=== PATIENT | female | born 1990 | race Caucasian/White ===

== ENCOUNTER 2017-12-15 09:20 | Emergency (ER) | payer SELFPAY ==
[2017-12-15 10:05] VITALS: BP 101/70
--- NOTE | 2017-12-15 10:20 | UC ---
Eye Complaint HPI - HPI Summary HPI Summary: Pt c/o left upper eye lid swelling and tenderness X 4 days. Pt has been applying warm packs with limited improvement. - History of Current Complaint Chief Complaint: UCEye Stated Complaint: LEFT EYE COMPLAINT Time Seen by Provider: 12/15/17 10:15 Hx Obtained From: Patient Hx Last Menstrual Period: 12/15/17 ?: No Onset/Duration: Gradual Onset, Lasting Days, Still Present, Worse Since - onset Timing: Constant Severity Initially: Mild Severity Currently: Mild Pain Intensity: 0 Location of Injury: Eye Lid (upper) - left Aggravating Factor(s): Nothing Associated Signs And Symptoms: Positive: Negative Related History: Other - stye - Risk Factors Penetrating Injury Risk Factor: Negative Globe Rupture Risk Factors: Negative - Allergies/Home Medications Allergies/Adverse Reactions: Allergies Allergy/AdvReac Type Severity Reaction Status Date / Time No Known Allergies Allergy Verified 12/15/17 10:00 PMH/Surg Hx/FS Hx/Imm Hx Previously Healthy: Yes - Surgical History Surgical History: Yes Surgery Procedure, Year, and Place: gallbladder - Family History Known Family History: Positive: Cardiac Disease - Social History Occupation: Employed Full-time Lives: With Family Alcohol Use: None Substance Use Type: None Smoking Status (MU): Heavy Every Day Tobacco Smoker Type: Cigarettes Amount Used/How Often: 1/2 PPD Have You Smoked in the Last Year: Yes - Immunization History Most Recent Influenza Vaccination: 03/2014 Review of Systems Constitutional: Negative Skin: Negative Eyes: Other - upper eye lid swelling ENT: Negative Respiratory: Negative Cardiovascular: Negative Gastrointestinal: Negative Genitourinary: Negative Motor: Negative Neurovascular: Negative Musculoskeletal: Negative Neurological: Negative Psychological: Negative Is Patient Immunocompromised?: No All Other Systems Reviewed And Are Negative: Yes Physical Exam Triage Information Reviewed: Yes Appearance: Well-Appearing Vital Signs: Initial Vital Signs Temp 98.3 F 12/15/17 10:00 Pulse 70 12/15/17 10:00 Resp 16 12/15/17 10:00 BP 101/70 12/15/17 10:00 Pulse Ox 100 12/15/17 10:00 Vital Signs Reviewed: Yes Eye Exam: Other - left upper eye lid swelling, mild erythema ENT Exam: Normal Dental Exam: Normal Neck exam: Normal Respiratory: Positive: No respiratory distress Musculoskeletal Exam: Normal Neurological Exam: Normal Psychological Exam: Normal Skin Exam: Normal Eye Complaint Course/Dx - Differential Dx/Diagnosis Differential Diagnosis/HQI/PQRI: Periorbital Cellulitis Provider Diagnoses: goran left upper eye lid Discharge - Sign-Out/Discharge Documenting (check all that apply): Discharge/Admit/Transfer - Discharge Plan Condition: Stable Disposition: HOME Prescriptions: Cephalexin CAP* [Keflex 500 CAP*] 500 mg PO Q12H #14 cap Patient Education Materials: Goran (ED) Referrals: More Hampton MD [Primary Care Provider] - If Needed - Billing Disposition and Condition Condition: STABLE Disposition: Home
== END 2017-12-15 10:26 | disposition home or self-care (01) ==
LOC: UCCORT 09:20
DX: H00.024 Hordeolum internum left upper eyelid (principal); F17.210 Nicotine dependence, cigarettes, uncomplicated
CPT/HCPCS: 99202; G0463

== ENCOUNTER 2018-05-01 11:56 | Emergency (ER) | payer SELFPAY ==
[2018-05-01 12:12] VITALS: BP 125/68
--- NOTE | 2018-05-01 12:47 | UC ---
Respiratory Complaint HPI - HPI Summary HPI Summary: 27 year old female presents with complaints of nasal congestion, post-nasal drip , and non-productive cough. States she had similar symptoms about 2 months ago which she self-treated with OTC cold medicines. State nasal congestion improved but the cough never completely subsided. About 1 week ago she started developing the nasal congestion and post-nasal drip again and had worsening of cough. Associated with some mild SOB especially first thing in the morning. Denies fever, chills, sinus pressure, ear pain, sore throat, chest pain, abdominal pain, nausea, or vomiting. - History of Current Complaint Chief Complaint: UCRespiratory Stated Complaint: CONGESTION,COUGH Time Seen by Provider: 05/01/18 12:33 Hx Obtained From: Patient Hx Last Menstrual Period: 04/22/18 Onset/Duration: Gradual Onset, Lasting Weeks Pain Intensity: 0 Character: Cough: Nonproductive Aggravating Factors: Recumbent Position Alleviating Factors: Nothing Associated Signs And Symptoms: Positive: Dyspnea, Nasal Congestion. Negative: Fever, Chills, Pleuritic Chest Pain, Wheezing, Hemoptysis, Sinus Discomfort - Allergies/Home Medications Allergies/Adverse Reactions: Allergies Allergy/AdvReac Type Severity Reaction Status Date / Time No Known Allergies Allergy Verified 05/01/18 12:10 PMH/Surg Hx/FS Hx/Imm Hx Previously Healthy: Yes - Denies significant PMH - Surgical History Surgical History: Yes Surgery Procedure, Year, and Place: gallbladder - Family History Known Family History: Positive: Cardiac Disease - Social History Occupation: Employed Part-time Lives: With Family Alcohol Use: None Substance Use Type: None Smoking Status (MU): Heavy Every Day Tobacco Smoker Type: Cigarettes Amount Used/How Often: 1/2 PPD Have You Smoked in the Last Year: Yes - Immunization History Most Recent Influenza Vaccination: 03/2014 Review of Systems All Other Systems Reviewed And Are Negative: Yes Constitutional: Positive: Negative Skin: Positive: Negative Eyes: Positive: Negative ENT: Positive: Nasal Discharge, Sinus Congestion Respiratory: Positive: Shortness Of Breath, Cough Cardiovascular: Positive: Negative Gastrointestinal: Positive: Negative Is Patient Immunocompromised?: No Physical Exam Triage Information Reviewed: Yes Appearance: Well-Appearing, No Pain Distress, Well-Nourished Vital Signs: Initial Vital Signs Temp 98 F 05/01/18 12:08 Pulse 74 11/11/18 12:08 Resp 15 05/01/18 12:08 BP 125/68 05/01/18 12:08 Pulse Ox 100 05/01/18 12:08 Eyes: Positive: Conjunctiva Clear. Negative: Discharge ENT: Positive: Hearing grossly normal, Pharyngeal erythema - Mild with postnasal drip, Nasal congestion, TMs normal, Uvula midline. Negative: Nasal drainage, Tonsillar swelling, Tonsillar exudate, Sinus tenderness Neck: Positive: Supple, Nontender, No Lymphadenopathy Respiratory: Positive: Lungs clear, Normal breath sounds, No respiratory distress, Other: - dry, nonproductive cough Cardiovascular: Positive: RRR, No Murmur Abdomen Description: Positive: Nontender, No Organomegaly, Soft. Negative: Distended, Guarding Neurological: Positive: Alert Skin Exam: Normal UC Diagnostic Evaluation - Laboratory O2 Sat by Pulse Oximetry: 100 Respiratory Course/Dx - Course Course Of Treatment: 27 year old female with URI symptoms and cough. States initially started 2 months ago. Nasal congestion improved with self-treatment using OTC cold medications however cough never subsided. For past week she has started having the nasal congestion and worsening of cough. Afebrile. Exam reveals nasal congestion, mild pharyngeal erythema with post-nasal drip and dry non-productive cough. She is a smoker and suspect that she may have some mild RAD contributing to the cough. Will treat her with a course of azithromycin, albuterol PRN, fluticasone nasal spray, saline rinses, and Tessalon Perles PRN. She is to follow up with PCP in 1 week if no improvement in symptoms. Warning symptoms reveiewed. Verbalizes understanding and agrees with POC. - Differential Dx/Diagnosis Differential Diagnosis/HQI/PQRI: Asthma, Bronchitis, Lower Resp Infection, Sinusitis Provider Diagnoses: URI Discharge - Sign-Out/Discharge Documenting (check all that apply): Patient Departure All imaging exams completed and their final reports reviewed: No Studies - Discharge Plan Condition: Stable Disposition: HOME Prescriptions: Albuterol HFA INHALER* [Ventolin HFA Inhaler*] 2 puff INH Q4H PRN #1 mdi PRN Reason: Sob/Wheezing Azithromyxin [place] (NF) [Z-[place] (Zithromax) 250 mg tabs #6] 2 tab PO .TODAY, THEN 1 DAILY #6 tab Benzonatate CAP* [Tessalon 100 MG CAP*] 100 mg PO TID PRN #30 cap PRN Reason: Cough Fluticasone NASAL SPRAY 50MCG* [Flonase NASAL SPRAY 50MCG*] 2 spray BOTH NARES DAILY #1 btl Patient Education Materials: How to Stop Smoking (ED), Upper Respiratory Infection (ED) Referrals: No Primary Care Phys,NOPCP [Primary Care Provider] - Additional Instructions: Your symptoms appear to be from an upper respiratory infection. Considering the duration of symptoms and your smoking history I will treat you with an antibiotic. Start azithromycin 2 tabs today then 1 tab a day for next 4 days. Use a saline rinse kit such as Neti Pot or NeilMed at least twice a day to help thin secretions and promote drainage. Start fluticasone (Flonase) nasal spray 2 sprays each nostril once a day. Try using an over the counter decongestant such as Sudafed to help with the nasal congestion. Use the albuterol inhaler 2 puffs every 4-6 hours as needed for shortness of breath, wheezing, or coughing fits. May use Tessalon Perles 1 cap every 8 hours as needed for cough. Follow up with your primary care provider in 7 days if no improvement in symptoms. Seek immediate medical attention in the emergency room if you develop fever greater than 100.5 F, have chest pain, increased shortness of breath, or any worsening of symptoms. - Billing Disposition and Condition Condition: STABLE Disposition: Home - Attestation Statements Provider Attestation: Per institutional requirements, I have reviewed the chart, however, I was not consulted specifically or made aware of this patient by the midlevel provider. I did not personally evaluate, interact with , or disposition this patient.
== END 2018-05-01 12:55 | disposition home or self-care (01) ==
LOC: UCCORT 11:56
DX: J06.9 Acute upper respiratory infection, unspecified (principal); F17.210 Nicotine dependence, cigarettes, uncomplicated
CPT/HCPCS: 99212; G0463

== ENCOUNTER 2018-05-13 09:36 | Emergency (ER) | payer SELFPAY ==
[2018-05-13 11:17] VITALS: BP 113/68
--- NOTE | 2018-05-13 11:31 | UC ---
UC General HPI - HPI Summary HPI Summary: PT CHIPPED A L LOWER TOOTH 2 DAYS AGO AND NOTICED A SENSITIVITY, YESTERDAY L LOW JAW STARTED TO SWELL. NO PAIN. - History of Current Complaint Chief Complaint: UCDentalProblem Stated Complaint: ORAL COMPLAINT Time Seen by Provider: 05/13/18 11:25 Hx Obtained From: Patient Hx Last Menstrual Period: 05/11/18 Onset/Duration: Gradual Onset Timing: Constant Pain Intensity: 0 Associated Signs & Symptoms: Negative: Fever, Headache - Allergy/Home Medications Allergies/Adverse Reactions: Allergies Allergy/AdvReac Type Severity Reaction Status Date / Time No Known Allergies Allergy Verified 05/13/18 11:13 Home Medications: Home Medications Acetaminophen [Acetaminophen Extra Strength] 1,000 mg PO ONCE PRN 05/13/18 [ History Confirmed 05/13/18] PMH/Surg Hx/FS Hx/Imm Hx Previously Healthy: Yes - Surgical History Surgical History: Yes Surgery Procedure, Year, and Place: gallbladder - Family History Known Family History: Positive: Cardiac Disease - Social History Alcohol Use: None Substance Use Type: None Smoking Status (MU): Heavy Every Day Tobacco Smoker Type: Cigarettes Amount Used/How Often: 1/2 PPD Have You Smoked in the Last Year: Yes - Immunization History Most Recent Influenza Vaccination: 03/2014 Vaccination Up to Date: Yes Review of Systems All Other Systems Reviewed And Are Negative: Yes Constitutional: Positive: Negative Skin: Positive: Negative Eyes: Positive: Negative ENT: Positive: Negative Respiratory: Positive: Negative Cardiovascular: Positive: Negative Gastrointestinal: Positive: Negative Genitourinary: Positive: Negative Motor: Positive: Negative Neurovascular: Positive: Negative Musculoskeletal: Positive: Negative Neurological: Positive: Negative Psychological: Positive: Negative Physical Exam Triage Information Reviewed: Yes Appearance: Well-Appearing Vital Signs: Initial Vital Signs Temp 98 F 05/13/18 11:14 Pulse 62 05/13/18 11:14 Resp 16 05/13/18 11:14 BP 113/68 05/13/18 11:14 Pulse Ox 100 05/13/18 11:14 Vital Signs Reviewed: Yes Eyes: Positive: Conjunctiva Clear ENT: Positive: Pharynx normal, TMs normal. Negative: Nasal congestion, Nasal drainage Dental: Positive: Gross Decay/Caries @ - LARGE FILLINGS L LOW JAW., Abscess @ - L LOWER LATERAL JAW BUT AREA NOT FLUCTUANT.. Negative: Percussion Tenderness @ Neck: Positive: Supple, Nontender, No Lymphadenopathy Respiratory: Positive: Lungs clear, Normal breath sounds Cardiovascular: Positive: RRR, No Murmur Abdomen Description: Positive: Nontender, No Organomegaly, Soft Bowel Sounds: Positive: Present Musculoskeletal: Positive: ROM Intact Neurological: Positive: Alert Psychological: Positive: Age Appropriate Behavior Skin Exam: Normal Course/Dx - Course Course Of Treatment: NO CONCERN FOR LUDWIGS ANGINA. NOTHING TO I&d OR ASPIRATE. PT HAS A DENTIST BUT THEY ARE CLOSED TODAY. - Differential Dx - Multi-Symptom Provider Diagnoses: L LOW JAW ABSCESS Discharge - Sign-Out/Discharge Documenting (check all that apply): Patient Departure All imaging exams completed and their final reports reviewed: No Studies - Discharge Plan Condition: Stable Disposition: HOME Prescriptions: Amoxicillin PO (*) [Amoxicillin 500 MG CAP*] 500 mg PO TID 10 Days #30 cap Patient Education Materials: Dental Abscess (ED) Referrals: No Primary Care Phys,NOPCP [Primary Care Provider] - Additional Instructions: [facility] W[facility]. - Billing Disposition and Condition Condition: STABLE Disposition: Home
== END 2018-05-13 11:37 | disposition home or self-care (01) ==
LOC: UCCORT 09:36
DX: M27.2 Inflammatory conditions of jaws (principal); K08.89 Other specified disorders of teeth and supporting structures; F17.210 Nicotine dependence, cigarettes, uncomplicated
CPT/HCPCS: 99212; G0463

== ENCOUNTER 2019-01-31 11:07 | Emergency (ER) | payer SELFPAY ==
[2019-01-31 11:24] VITALS: BP 119/73
--- NOTE | 2019-01-31 11:33 | UC ---
UC Dental HPI - HPI Summary HPI Summary: dental pain left lower back molar x 2 days pain is 3 out of 10 , no radiation, worse with chewing , better with Tylenol no fever , no chills, + swelling , redness - History of Current Complaint Chief Complaint: UCDentalProblem Stated Complaint: DENTAL COMPLAINT Time Seen by Provider: 01/31/19 11:14 Hx Obtained From: Patient Hx Last Menstrual Period: 01/19/19 Onset/Duration: Gradual Onset, Lasting Days - 2, Still Present Severity: Moderate Pain Intensity: 0 Aggravating Factor(s): Chewing Alleviating Factor(s): OTC Meds Dental: 1 - broken tooth - Allergies/Home Medications Allergies/Adverse Reactions: Allergies Allergy/AdvReac Type Severity Reaction Status Date / Time No Known Allergies Allergy Verified 01/31/19 11:24 Home Medications: Home Medications Ibuprofen 5 tab PO ONCE 01/31/19 [History Confirmed 01/31/19] PMH/Surg Hx/FS Hx/Imm Hx Previously Healthy: Yes - Surgical History Surgical History: Yes Surgery Procedure, Year, and Place: gallbladder - Family History Known Family History: Positive: Cardiac Disease - Social History Alcohol Use: None Substance Use Type: None Smoking Status (MU): Heavy Every Day Tobacco Smoker Type: Cigarettes Amount Used/How Often: 1/2 PPD Have You Smoked in the Last Year: Yes - Immunization History Most Recent Influenza Vaccination: 03/2014 Vaccination Up to Date: Yes Review of Systems All Other Systems Reviewed And Are Negative: Yes Constitutional: Positive: Negative Skin: Positive: Negative Eyes: Positive: Negative ENT: Positive: Dental Pain Respiratory: Positive: Negative Is Patient Immunocompromised?: No Physical Exam Triage Information Reviewed: Yes Appearance: Well-Appearing, No Pain Distress, Well-Nourished Vital Signs: Initial Vital Signs Temp 98.7 F 01/31/19 11:19 Pulse 76 01/31/19 11:19 Resp 18 01/31/19 11:19 BP 119/73 01/31/19 11:19 Pulse Ox 99 01/31/19 11:19 Vital Signs Reviewed: Yes Eye Exam: Normal Eyes: Positive: Conjunctiva Clear ENT: Positive: Normal ENT inspection, Pharynx normal Dental Exam: Normal Dental: Positive: Gross Decay/Caries @ - #19, Dental Fracture @ - #19, Abscess @ - #19 Neck exam: Normal Neck: Positive: 1 Respiratory Exam: Normal Respiratory: Positive: Chest non-tender, Lungs clear, Normal breath sounds Cardiovascular Exam: Normal Cardiovascular: Positive: RRR, No Murmur, Pulses Normal Dental Complaint Course/Dx - Differential Dx/Diagnosis Provider Diagnosis: Dental abscess Discharge - Sign-Out/Discharge Documenting (check all that apply): Patient Departure All imaging exams completed and their final reports reviewed: No Studies - Discharge Plan Condition: Stable Disposition: HOME Prescriptions: Clindamycin Cap(NF) [Clindamycin Cap 300 mg Cap(NF)] 300 mg PO TID #30 cap Patient Education Materials: Dental Abscess (ED) Referrals: No Primary Care Phys,NOPCP [Primary Care Provider] - 7 Days - Billing Disposition and Condition Condition: STABLE Disposition: Home
== END 2019-01-31 11:35 | disposition home or self-care (01) ==
LOC: UCCORT 11:07
DX: K04.7 Periapical abscess without sinus (principal); F17.210 Nicotine dependence, cigarettes, uncomplicated
CPT/HCPCS: 99212; G0463

== ENCOUNTER 2019-09-21 19:16 | Emergency (ER) | payer SELFPAY ==
--- NOTE | 2019-09-21 19:21 | UC ---
UC Dental HPI - HPI Summary HPI Summary: 29yo female presenting with left lower molar tenderness and gum swelling since yesterday. Patient states the tooth has been fractured for over a year and has gotten infected in the past. Denies trismus. Denies drainage. Denies fever and chills. Denies n/v. States she has an appt with dentist soon for extraction of tooth. - History of Current Complaint Stated Complaint: DENTAL COMPLAINT Hx Obtained From: Patient Hx Last Menstrual Period: 01/19/19 - Allergies/Home Medications Allergies/Adverse Reactions: Allergies Allergy/AdvReac Type Severity Reaction Status Date / Time No Known Allergies Allergy Verified 09/21/19 19:22 Home Medications: Home Medications Ibuprofen 800 tab PO ONCE PRN 01/31/19 [History Confirmed 09/21/19] Amoxicillin PO (*) [Amoxicillin 875 MG (*)] 875 mg PO BID #14 tab 09/21/19 [Rx] PMH/Surg Hx/FS Hx/Imm Hx Previously Healthy: Yes - Surgical History Surgical History: Yes Surgery Procedure, Year, and Place: gallbladder - Family History Known Family History: Positive: Cardiac Disease, Non-Contributory - Social History Alcohol Use: None Substance Use Type: None Smoking Status (MU): Heavy Every Day Tobacco Smoker Type: Cigarettes Amount Used/How Often: 1/2 PPD Have You Smoked in the Last Year: Yes - Immunization History Most Recent Influenza Vaccination: 03/2014 Vaccination Up to Date: Yes Review of Systems All Other Systems Reviewed And Are Negative: Yes Constitutional: Positive: Negative. Negative: Fever ENT: Positive: Dental Pain - left lower molar pain Respiratory: Positive: Negative Cardiovascular: Positive: Negative Gastrointestinal: Positive: Negative. Negative: Vomiting, Nausea Musculoskeletal: Positive: Negative. Negative: Arthralgia, Edema Neurological/Mental Status: Positive: Negative Physical Exam Triage Information Reviewed: Yes Appearance: Well-Appearing, No Pain Distress, Well-Nourished Vital Signs: Vital Signs (72 hours) 09/21/19 19:24 Temperature 97.5 F Pulse Rate 67 Respiratory 16 Rate Blood Pressure 94/77 (mmHg) O2 Sat by Pulse 98 Oximetry Vital Signs Reviewed: Yes Eyes: Positive: Conjunctiva Clear ENT: Positive: Hearing grossly normal, Pharynx normal, Uvula midline. Negative : Trismus Dental: Positive: Percussion Tenderness @ - left lower first molar, Gross Decay/ Caries @ - throughout teeth, Dental Fracture @ - left lower first molar, Cellulitis @ - gingiva surrounding left lower molars, Other: - no drainage or fluctuance. Negative: Abscess @, Cervical Lymphadenopathy, Bleeding Neck exam: Normal Neck: Positive: Supple, Nontender, No Lymphadenopathy Respiratory: Positive: No respiratory distress, No accessory muscle use Cardiovascular Exam: Other - skin reflects adequate perfusion Neurological: Positive: Alert Psychological: Positive: Age Appropriate Behavior Skin Exam: Normal - no erythema Dental Complaint Course/Dx - Course Course Of Treatment: I treated patient with amoxicillin for dental infection and instructed to continue with salt water gargles and otc analgesics. Instructed to attend appt with dentist for extraction of tooth. Educated on s/s of worsening infection and instructed to return or go to ED if any red flags occur. Patient voiced understanding and agreed with treatment plan. - Differential Dx/Diagnosis Differential Diagnosis/Dx: Dental Abscess, Dental Caries, Fractured Tooth Provider Diagnosis: Infected dental caries Discharge ED - Sign-Out/Discharge Documenting (check all that apply): Patient Departure All imaging exams completed and their final reports reviewed: No Studies - Discharge Plan Condition: Stable Disposition: HOME Prescriptions: Amoxicillin PO (*) [Amoxicillin 875 MG (*)] 875 mg PO BID #14 tab Patient Education Materials: Toothache (ED) Additional Instructions: Take amoxicillin as prescribed. Continue with warm salt water gargles throughout the day and after eating. [place] at least twice daily. You may continue with tylenol or ibuprofen for pain relief. Return or go to the emergency room with any new or worsening symptoms. - Billing Disposition and Condition Condition: STABLE Disposition: Home
[2019-09-21 19:27] VITALS: BP 94/77
== END 2019-09-21 19:40 | disposition home or self-care (01) ==
LOC: UCCORT 19:16
DX: K02.9 Dental caries, unspecified (principal); F17.210 Nicotine dependence, cigarettes, uncomplicated; K08.89 Other specified disorders of teeth and supporting structures
CPT/HCPCS: 99212; G0463